=== PATIENT | female | born 1950 | race Caucasian/White ===

== ENCOUNTER 2018-08-16 12:09 | Day surgery (SDC) | payer OTHER ==
--- NOTE | 2018-08-16 20:56 | OP ---
DATE OF OPERATION: 08/16/2018 PREOPERATIVE DIAGNOSIS: Right breast mass, 8 o'clock, 6 cm from the nipple. POSTOPERATIVE DIAGNOSIS: Right breast mass, 8 o'clock, 6 cm from the nipple. PROCEDURE: Right breast ultrasound-guided core biopsy with clip placement. ANESTHESIA: Local. ATTENDING SURGEON: Mariaelena Simpson MD ESTIMATED BLOOD LOSS: Minimal. COMPLICATIONS: None. DESCRIPTION OF PROCEDURE: Patient was made aware of the risks and benefits of the procedure and consented. She was placed in the supine position, and under sterile conditions with 1% lidocaine for local anesthesia, a small kristin was made in the skin. Using a 10-gauge suction biopsy device via lateral approach under ultrasound guidance, multiple cores were obtained and submitted to Pathology. Likewise, under ultrasound guidance, a U-shaped clip was placed into the biopsy region. Well tolerated by patient. Steri-Strips and a sterile dressing were applied. We will contact her with the results. MARIAELENA SIMPSON M.D. [id number]
--- NOTE | 2018-08-17 16:58 | PATH ---
Surgical Pathology Report Patient Name: URI WINN [facility]. Rec. #: [id number] /Age/Gender: 1950 (Age: 68) / F Account: [id number] Location: [facility] U Taken: 08/16/2018 Received: 08/16/2018 Reported: 08/17/2018 Physicians: Otis Staley M.D. 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 Electronically Signed Pau Britt M.D. Gross Description Received in formalin labeled "right breast core biopsy 8:00, 6 CM FN" are 4 cross-yellow, cylindrical portions of fibroadipose tissue ranging from 0.6-1 cm in length and averaging 0.4 cm diameter. The specimens are submitted in toto in one cassette. Time to formalin fixation: 1 minute Total formalin fixation time: Approximately 19-20 hours. MLSZ/08/16/2018 [place]/08/16/2018
== END 2018-08-16 13:37 | disposition home or self-care (01) ==
LOC: FRADUS-SUR 12:09 → FRADUS 12:09 → FRADUS-SUR 13:37
PROVIDERS: ATTEND Surgery Surgical Oncology
PROC: 0HBT3ZX Excision of Right Breast, Percutaneous Approach, Diagnostic (ICD-10-PCS; principal; 2018-08-16)
DX: D24.1 Benign neoplasm of right breast (principal); N63.13 Unspecified lump in the right breast, lower outer quadrant
CPT/HCPCS: 19083; 87899; 88305-TC; A4648